=== PATIENT | male | born 1950 | race Caucasian/White ===

== ENCOUNTER → 2017-11-10 | Outpatient (CLI) | payer MEDICARE, BC ==
[~2017-11-10] MED LIST: 2 ANTIBIOTICS; AMARYL; ASPI81EC PO; CIPR500 PO; METF500 PO; METR500 PO; NAPR500 PO; OMEP20ER PO; PRAV20 PO; SUCR1SU PO
[2017-11-10 13:24] LABS: Microalb/Creat Ratio UR, Rand Unable to Calculate mg/g (0.000-30.000); Microalbumin, Random Urine <5.000 mg/L (0.000-20.000)
== END | disposition home or self-care (01) ==
LOC: LAB 08:00 → LAB SHORT 08:00
PROVIDERS: Internal Medicine
DX: E78.5 Hyperlipidemia, unspecified (principal); E11.8 Type 2 diabetes mellitus with unspecified complications; R74.8 Abnormal levels of other serum enzymes
CPT/HCPCS: 82043; 82570

== ENCOUNTER 2022-11-15 08:19 | Day surgery (SDC) | payer MEDICARE, BC ==
[~2022-11-15] VITALS: Ht 175.3 cm; Wt 79.2 kg
[2022-11-15] MEDS ORDERED: Amaryl1 MG PO (09:17)
[2022-11-15] MEDS ORDERED: EZET10 PO (09:21)
[2022-11-15] MEDS ORDERED: CLOP75 PO (09:22)
[2022-11-15] MEDS ORDERED: METO25ER PO (09:23)
[2022-11-15] MEDS ORDERED: PIOG15 PO (09:24)
[2022-11-15] MEDS ORDERED: BETA.05TCA (09:25)
[2022-11-15] MEDS ORDERED: Bentyl10 MG PO (09:26)
--- NOTE | 2022-11-15 11:15 | NUR ---
11/15/22 1115 Jennifer Harding NO POST OP EKG IN PACU PER DR. PERSAUD.
[2022-11-15 11:30] VITALS: BP 131/60
== END 2022-11-15 11:52 | disposition home or self-care (01) ==
LOC: ORSCSDS 08:19
PROVIDERS: Orthopaedic Surgery
PROC: 01N50ZZ Release Median Nerve, Open Approach (ICD-10-PCS; principal; 2022-11-15 09:30)
PROC: 0R9N3ZZ Drainage of Right Wrist Joint, Percutaneous Approach (ICD-10-PCS; principal; 2022-11-15 09:30)
DX: G56.02 Carpal tunnel syndrome, left upper limb (principal); M19.031 Primary osteoarthritis, right wrist; I25.10 Atherosclerotic heart disease of native coronary artery without angina pectoris; Z87.891 Personal history of nicotine dependence; K21.9 Gastro-esophageal reflux disease without esophagitis; E11.9 Type 2 diabetes mellitus without complications; E78.5 Hyperlipidemia, unspecified; Z86.73 Personal history of transient ischemic attack (TIA), and cerebral infarction without residual deficits; Z79.84 Long term (current) use of oral hypoglycemic drugs; Z79.899 Other long term (current) drug therapy
CPT/HCPCS: 82947; J0171; J0690; J1100; J1885; J2405; J2704; J2795; J3010; J3301

== ENCOUNTER 2024-01-05 05:18 | Day surgery (SDC) | payer MEDICARE, BC ==
[~2024-01-05 05:18] MED LIST changes: +Amaryl1 MG PO; +BETA.05TCA; +Bentyl10 MG PO; +CLOP75 PO; +EZET10 PO; +INCLISIRAN SODIUM 284 MG/1.5 ML SYRINGE SC SCH; +METO25ER PO; +PIOG15 PO
[2024-01-05 11:18] VITALS: BP 141/82
== END 2024-01-05 11:30 | disposition home or self-care (01) ==
LOC: ATC 05:18
DX: I25.10 Atherosclerotic heart disease of native coronary artery without angina pectoris (principal); E78.5 Hyperlipidemia, unspecified; E11.9 Type 2 diabetes mellitus without complications; I10 Essential (primary) hypertension; Z79.899 Other long term (current) drug therapy; Z88.8 Allergy status to other drugs, medicaments and biological substances
CPT/HCPCS: 96372; J1306

== ENCOUNTER → 2024-02-06 | Outpatient (CLI) | payer MEDICARE, BC ==
[~2024-02-06] MED LIST changes: -INCLISIRAN SODIUM 284 MG/1.5 ML SYRINGE SC SCH
== END ==
LOC: LAB 07:45 → LAB SHORT 07:45
DX: B35.1 Tinea unguium (principal); L60.2 Onychogryphosis
CPT/HCPCS: 88305; 88312

== ENCOUNTER 2024-04-04 13:53 | Emergency (ER) | payer MEDICARE, BC ==
[~2024-04-04] VITALS: Ht 175.3 cm; Wt 81.7 kg
[2024-04-04 14:12] VITALS: BP 141/74
== END 2024-04-04 15:55 | disposition home or self-care (01) ==
LOC: ER 13:53
DX: R04.0 Epistaxis (principal); E78.00 Pure hypercholesterolemia, unspecified; E11.9 Type 2 diabetes mellitus without complications
CPT/HCPCS: 99283

== ENCOUNTER 2024-07-05 01:29 | Day surgery (SDC) | payer MEDICARE, BC ==
[2024-07-05] MEDS ORDERED: INCLISIRAN SODIUM 284 MG/1.5 ML SYRINGE SC SCH (06:00)
[2024-07-05 11:03] VITALS: BP 136/74
== END 2024-07-05 11:06 | disposition home or self-care (01) ==
LOC: ATC 01:29
DX: I25.10 Atherosclerotic heart disease of native coronary artery without angina pectoris (principal); E78.5 Hyperlipidemia, unspecified; E11.9 Type 2 diabetes mellitus without complications; K21.9 Gastro-esophageal reflux disease without esophagitis; I25.2 Old myocardial infarction; Z95.1 Presence of aortocoronary bypass graft; Z79.899 Other long term (current) drug therapy; Z88.8 Allergy status to other drugs, medicaments and biological substances; Z79.84 Long term (current) use of oral hypoglycemic drugs
CPT/HCPCS: 96372; J1306

== ENCOUNTER 2025-01-10 00:55 | Day surgery (SDC) | payer MEDICARE, BC ==
[2025-01-10] MEDS ORDERED: INCLISIRAN SODIUM 284 MG/1.5 ML SYRINGE SC SCH (06:00)
[2025-01-10 11:14] VITALS: BP 136/72
== END 2025-01-10 11:21 | disposition home or self-care (01) ==
LOC: ATC 00:55
DX: E78.5 Hyperlipidemia, unspecified (principal); R30.0 Dysuria; H81.10 Benign paroxysmal vertigo, unspecified ear; E11.9 Type 2 diabetes mellitus without complications; E87.1 Hypo-osmolality and hyponatremia; G47.33 Obstructive sleep apnea (adult) (pediatric); I10 Essential (primary) hypertension; K21.9 Gastro-esophageal reflux disease without esophagitis; M19.041 Primary osteoarthritis, right hand; M19.042 Primary osteoarthritis, left hand; M19.021 Primary osteoarthritis, right elbow; M19.022 Primary osteoarthritis, left elbow; M17.0 Bilateral primary osteoarthritis of knee; M47.816 Spondylosis without myelopathy or radiculopathy, lumbar region; I77.810 Thoracic aortic ectasia; I25.10 Atherosclerotic heart disease of native coronary artery without angina pectoris; I25.2 Old myocardial infarction; E55.9 Vitamin D deficiency, unspecified; K58.2 Mixed irritable bowel syndrome; K76.0 Fatty (change of) liver, not elsewhere classified; Z86.73 Personal history of transient ischemic attack (TIA), and cerebral infarction without residual deficits; Z87.891 Personal history of nicotine dependence; Z79.02 Long term (current) use of antithrombotics/antiplatelets; Z79.84 Long term (current) use of oral hypoglycemic drugs; Z79.899 Other long term (current) drug therapy; Z88.6 Allergy status to analgesic agent; Z95.1 Presence of aortocoronary bypass graft
CPT/HCPCS: 96372; 99211; J1306